=== PATIENT | female | born 1970 | race Caucasian/White ===

== ENCOUNTER 2016-09-18 12:58 | Emergency (ER) | payer BC ==
[~2016-09-18] VITALS: Ht 162.6 cm; Wt 95.5 kg
[2016-09-18 13:00] VITALS: BP 120/85; PULSE 78; TEMP 98.3
[2016-09-18] MEDS ORDERED: ANTIVERT 25MG25 MG PO (14:31)
== END 2016-09-18 14:40 | disposition home or self-care (01) ==
LOC: COL.ER 12:58
DX: G43.909 Migraine, unspecified, not intractable, without status migrainosus (principal); H65.92 Unspecified nonsuppurative otitis media, left ear; R42 Dizziness and giddiness
CPT/HCPCS: J2550